=== PATIENT | male | born 1950 | race Caucasian/White ===

== ENCOUNTER → 2017-03-17 | Outpatient (CLI) | payer MEDICAID, MEDICARE ==
[~2017-03-17] MED LIST: CATHETER FLUSH 10 ML SYR IV PRN; CIPR500T78 PO; METO25TA2 PO; REGADENOSON 0.4 MG/5 ML SYR (LEXISCAN) IV ONE
[2017-03-17 13:41] VITALS: BP 181/93
[2017-03-17 13:44] VITALS: BP 169/88
[2017-03-17 13:46] VITALS: BP 179/90
== END ==
LOC: CARD 11:54
PROVIDERS: ATTEND Pediatrics
DX: R07.9 Chest pain, unspecified (principal)
CPT/HCPCS: 78452; 93017

== ENCOUNTER → 2018-04-22 | Outpatient (CLI) | payer MEDICARE, MEDICAID ==
[~2018-04-22] MED LIST changes: -CATHETER FLUSH 10 ML SYR IV PRN; -REGADENOSON 0.4 MG/5 ML SYR (LEXISCAN) IV ONE
== END ==
LOC: CARD 14:59
PROVIDERS: ATTEND Internal Medicine Cardiovascular Disease
DX: R07.89 Other chest pain (principal); I10 Essential (primary) hypertension; E78.2 Mixed hyperlipidemia; E11.9 Type 2 diabetes mellitus without complications; I07.1 Rheumatic tricuspid insufficiency; Z83.3 Family history of diabetes mellitus
CPT/HCPCS: 93306

== ENCOUNTER → 2018-04-23 | Outpatient (CLI) | payer MEDICARE, MEDICAID ==
[~2018-04-23] MED LIST changes: +CATHETER FLUSH 10 ML SYR IV PRN; +REGADENOSON 0.4 MG/5 ML SYR (LEXISCAN) IV ONE
[2018-04-23 07:59] LABS: ALANINE AMINOTRANSFERASE 18 U/L (0-55); ALBUMIN 4.6 GM/DL (3.2-4.5); ALKALINE PHOSPHATASE 37 U/L (40-136); BILIRUBIN,TOTAL 0.7 MG/DL (0.1-1.0); BUN/CREATININE RATIO 8; CALCIUM 10.2 MG/DL (8.5-10.1); CARBON DIOXIDE 26 MMOL/L (21-32); CHLORIDE 97 MMOL/L (98-107); CHOLESTEROL 103 MG/DL (< 200); CREATININE SERUM 0.97 MG/DL (0.60-1.30); GFR ESTIMATED > 60; GLUCOSE 119 MG/DL (70-105); HDL CHOLESTEROL 48 MG/DL (40-60); POTASSIUM 4.2 MMOL/L (3.6-5.0); SODIUM 133 MMOL/L (135-145); TOTAL PROTEIN 7.5 GM/DL (6.4-8.2); TRIGLYCERIDES 104 MG/DL (<150); VLDL CHOLESTEROL 21 MG/DL (5-40)
--- NOTE | 2018-04-23 18:41 | STRESS TEST ---
DATE OF SERVICE: 04/23/2018 LEXISCAN MYOVIEW STRESS TEST REPORT REFERRING PHYSICIAN: Dr. Robe Harris. Baseline heart rate is 73, baseline blood pressure 178/88. Baseline EKG is sinus rhythm with no ischemic changes. In summary, the patient was injected with 8.84 mCi of technetium-99 Myoview and the resting images were obtained. Then, he received 0.4 mg of Lexiscan followed by 27.7 mCi of technetium-99 Myoview. Throughout the test, the patient was asymptomatic. He had mild dyspnea, no EKG changes. The resting and stress images were reviewed and compared in the short axis, horizontal long axis, and vertical long axis views. Review of the images showed diaphragmatic attenuation with fixed defect at the inferoapical segment with no significant ischemia or infarction. SSS is 2, SDS 0. TID value is 1.12. On the gated images, the left ventricle appeared to be in normal size with normal contractility. Calculated ejection fraction is 57%. CONCLUSION: 1. The patient tolerated Lexiscan well. 2. Diaphragmatic attenuation with no significant ischemia or infarction on SPECT images. 3. Normal left ventricular size with normal contractility. Calculated ejection fraction is 57%. Job ID: [id number] DocumentID: [id number] Dictated Date: 04/23/2018 15:54:42 Sports Team Manager Date: 04/23/2018 18:40:47 Dictated By: GALE GÓMEZ MD
== END ==
LOC: CARD 06:45
PROVIDERS: ATTEND Internal Medicine Cardiovascular Disease
DX: R07.89 Other chest pain (principal); E78.2 Mixed hyperlipidemia; E11.9 Type 2 diabetes mellitus without complications; Z83.3 Family history of diabetes mellitus; I10 Essential (primary) hypertension
CPT/HCPCS: 36415; 78452; 80053; 80061; 93017

== ENCOUNTER → 2019-01-05 | Outpatient (CLI) | payer MEDICARE, MEDICAID ==
[~2019-01-05] MED LIST changes: -CATHETER FLUSH 10 ML SYR IV PRN; -REGADENOSON 0.4 MG/5 ML SYR (LEXISCAN) IV ONE
--- NOTE | 2019-01-05 11:39 | Diagnostic Imaging Report ---
PROCEDURE: CT chest without contrast. TECHNIQUE: Multiple contiguous axial images were obtained through the chest without the use of intravenous contrast. Auto Exposure Controls were utilized during the CT exam to meet ALARA standards for radiation dose reduction. INDICATION: Swelling on the left side of sternum. COMPARISON: There are no prior studies available for comparison. FINDINGS: The axial images do show asymmetric prominence of the subcutaneous fat along the left lateral aspect of the sternum (image 51-69 of 126). There is no solid mass or cyst evident in this area. It is possible there could be a lipoma in this region although it is difficult to identify any discrete lesion. There does appear to be gynecomastia on the left. Whether this accounts for the left-sided soft tissue prominence is not certain. If further evaluation is desired, then mammography and ultrasound would be recommended. The sternum itself is intact and there is no acute bony abnormality appreciated. The other osseous structures are also unremarkable for a fracture or destructive lesion. There does appear to be at least moderate degenerative disc and bony disease involving the lower thoracic spine. The lungs are clear. There is no evidence for failure, pneumonia or for a pleural effusion. There is no parenchymal lung mass identified either. The heart size is within normal limits. There are coronary artery calcifications evident. The aorta is not abnormally dilated. There is no obvious mediastinal or hilar adenopathy. The thyroid gland where visualized is unremarkable. The sections through the upper abdomen failed to show any sign of an acute abnormality. There is cholelithiasis without evidence for acute cholecystitis. The right adrenal gland was visualized. The right kidney is not clearly imaged and there may be surgical clips in the right renal fossa. The left kidney, where visualized, also seems hypertrophied. Correlation with patient's history would be recommended. If further evaluation of the kidneys is desired, then CT of the abdomen and pelvis would be recommended. IMPRESSION: 1. There is generalized prominence of the subcutaneous fat along the left lateral aspect of the sternum but there is no discrete mass or cyst identified in this area. There does seem to be gynecomastia on the left. Whether this accounts for the asymmetry of the subcutaneous fat is not certain. Recommendations as above. 2. There is no acute cardiopulmonary abnormality noted. 3. The heart is not enlarged. There are coronary artery calcifications evident. 4. There is cholelithiasis without evidence for acute cholecystitis. 5. The left kidney seems enlarged while the right kidney is not visualized and may be surgically absent. Recommendations as above. Dictated by: Dictated on workstation # [id number]
== END ==
LOC: RAD FS 09:18
PROVIDERS: ATTEND Family Medicine
DX: I25.10 Atherosclerotic heart disease of native coronary artery without angina pectoris (principal); K80.20 Calculus of gallbladder without cholecystitis without obstruction; N28.81 Hypertrophy of kidney; M95.4 Acquired deformity of chest and rib; R22.2 Localized swelling, mass and lump, trunk; Z98.890 Other specified postprocedural states
CPT/HCPCS: 71250

== ENCOUNTER → 2019-03-25 | Outpatient (CLI) | payer MEDICARE, MEDICAID ==
--- NOTE | 2019-03-25 16:16 | Diagnostic Imaging Report ---
PROCEDURE: MR imaging of the chest without contrast. TECHNIQUE: Multiplanar, multisequence non-contrast MR imaging of the chest was performed. DATE: March 25, 2019. INDICATION: 68-year-old male, mass/swelling in the region of the left side of the sternum. COMPARISON: CT chest January 05, 2019. FINDINGS: There is bilateral gynecomastia. There are bilateral sternoclavicular degenerative changes. There is no sternoclavicular joint dislocation. There is no sternoclavicular joint effusion. There is no identified concerning bone lesion. There is no soft tissue mass in the region of the sternum. There is a partially imaged area of fat attenuation in the region of the left intra-abdominal wall on coronal T1 sequence image 13 which is incompletely imaged. This could potentially reflect a lipoma or fat-containing hernia. IMPRESSION: 1. No concerning bone lesion or identified soft tissue mass at the level of the sternum. 2. Bilateral sternoclavicular degenerative changes. No sternoclavicular joint effusion. 3. Bilateral gynecomastia. Dictated by: Dictated on workstation # [id number]
== END ==
LOC: RAD 13:03
PROVIDERS: ATTEND Family Medicine
DX: M19.012 Primary osteoarthritis, left shoulder (principal); M19.011 Primary osteoarthritis, right shoulder; N62 Hypertrophy of breast
CPT/HCPCS: 71550

== ENCOUNTER → 2019-11-03 | Outpatient (CLI) | payer MEDICARE, MEDICAID ==
--- NOTE | 2019-11-03 11:00 | Diagnostic Imaging Report ---
PROCEDURE: CT lumbar spine without contrast. TECHNIQUE: Multiple contiguous axial images were obtained through the lumbar spine without the use of intravenous contrast. Sagittal and coronal reformations were then performed. Auto Exposure Controls were utilized during the CT exam to meet ALARA standards for radiation dose reduction. INDICATION: Low back pain. Prior lumbar spine fusion. COMPARISON: None. FINDINGS: There are five lumbar-type vertebral bodies. Normal alignment. Vertebral body heights are preserved. No fractures. There are postoperative findings of bilateral shant and pedicle screw fixation with laminectomies and interbody devices at L3 through S1. Streak artifact from the hardware limits evaluation. Hardware appears intact. No evidence of loosening. There appears to be at least partial osseous bridging about the interbody devices at each of the levels. Osteophytic ridging results in [id number] bilateral neuroforaminal narrowing at L5-S1, mild at L4-L5. No high-grade spinal canal stenosis is evident on soft tissue windows. The visualized pelvis is intact. Advanced atherosclerotic calcifications. IMPRESSION: 1. Bilateral shant and pedicle screw fixation with interbody devices and laminectomies at L3-S1. No evidence of hardware failure. There appears to be at least partial osseous bridging about each of the fused levels. 2. [id number] osseous bilateral neuroforaminal narrowing at L5-S1, mild at L4-L5. No high-grade spinal canal stenosis is evident on soft tissue windows. 3. No acute osseous findings. Dictated by: Dictated on workstation # [id number]
== END ==
LOC: RAD FS 10:14
PROVIDERS: ATTEND Orthopaedic Surgery Orthopaedic Trauma
DX: M43.26 Fusion of spine, lumbar region (principal); M48.061 Spinal stenosis, lumbar region without neurogenic claudication
CPT/HCPCS: 72131

== ENCOUNTER → 2020-08-30 | Outpatient (CLI) | payer MEDICARE, MEDICAID | LOC: LAB FS 13:28 | PROVIDERS: ATTEND Internal Medicine Cardiovascular Disease | DX: Z01.812 Encounter for preprocedural laboratory examination (principal); Z20.822 Contact with and (suspected) exposure to COVID-19 | CPT/HCPCS: 87635 ==

== ENCOUNTER → 2020-08-30 | Outpatient (CLI) | payer MEDICARE, MEDICAID ==
[2020-08-30 14:25] LABS: CARBON DIOXIDE 28 MMOL/L (21-32); CHLORIDE 92 MMOL/L (98-107); POTASSIUM 3.8 MMOL/L (3.6-5.0); SODIUM 132 MMOL/L (135-145)
[2020-08-30 14:26] LABS: ALANINE AMINOTRANSFERASE 15 U/L (0-55); ALBUMIN 4.9 GM/DL (3.2-4.5); ALKALINE PHOSPHATASE 39 U/L (40-136); BILIRUBIN,TOTAL 0.5 MG/DL (0.1-1.0); BUN/CREATININE RATIO 10; CALCIUM 9.7 MG/DL (8.5-10.1); CREATININE SERUM 0.97 MG/DL (0.60-1.30); GFR ESTIMATED > 60; GLUCOSE 111 MG/DL (70-105); TOTAL PROTEIN 7.6 GM/DL (6.4-8.2)
[2020-08-30 22:58] LABS: CHOLESTEROL 92 MG/DL (< 200); HDL CHOLESTEROL 50 MG/DL (40-60); TRIGLYCERIDES 87 MG/DL (<150); VLDL CHOLESTEROL 17 MG/DL (5-40)
== END ==
LOC: LAB FS 13:39
PROVIDERS: ATTEND Physician Assistant
DX: E78.2 Mixed hyperlipidemia (principal)
CPT/HCPCS: 36415; 80053; 80061

== ENCOUNTER 2020-09-01 20:33 | Outpatient (CLI) | payer MEDICARE, MEDICAID | END 2020-09-02 06:18 | disposition home or self-care (01) | LOC: SLEEP 20:33 | PROVIDERS: ATTEND Internal Medicine Cardiovascular Disease | DX: G47.33 Obstructive sleep apnea (adult) (pediatric) (principal) | CPT/HCPCS: 95810 ==

== ENCOUNTER → 2021-03-04 | Outpatient (CLI) | payer MEDICARE, MEDICAID | LOC: CARD 13:00 | PROVIDERS: ATTEND Internal Medicine Cardiovascular Disease | DX: I35.8 Other nonrheumatic aortic valve disorders (principal); I10 Essential (primary) hypertension | CPT/HCPCS: 93306 ==

== ENCOUNTER → 2021-08-15 | Outpatient (CLI) | payer MEDICARE, MEDICAID ==
[~2021-08-15] MED LIST changes: +CATHETER FLUSH 10 ML SYR IV PRN; +HOLD METFORMIN - RECEIVED CONTRAST 20 ML VIAL IV SCH; +IOHEXOL 350 MG/ML 100 ML (OMNIPAQUE 350) VIAL IV ONE; +NS 100 ML (IVPB) BAG IV ONE
[2021-08-15 13:57] LABS: CREATININE SERUM 0.94 MG/DL (0.60-1.30)
--- NOTE | 2021-08-15 16:18 | Diagnostic Imaging Report ---
INDICATION: Renal malignancy, history of carotid stenosis. TECHNIQUE: All CT scans use one or more of the following dose optimizing techniques: Automated exposure control, MA and/or KvP adjustment based on a patient size and exam type, or iterative reconstruction. COMPARISON: I have no relevant comparison. FINDINGS: There is mild non-stenosing eccentric calcified plaque at the aortic arch. The branching pattern of the great vessels is unremarkable. There is mixed soft and hard plaque in the proximal left subclavian resulting in less than 40% stenosis, and less than 30% stenosis of the right subclavian owing to mixed plaque present. The bilateral cervical vertebral arteries are codominant and patent and show no significant stenosis with a few scattered bilateral eccentric calcified plaques. They are patent through their intradural segments, and the basilar artery and visualized proximal [employer] segments are unremarkable. There are PCOMs identified bilaterally. There is mixed soft and hard plaque in the mid to distal left greater than right common carotids without hemodynamically significant stenosis. There is extensive plaque at the bilateral carotid bulbs and bifurcations extending into the proximal ICAs. The severity and density of the calcified plaque do result in some artifactual distortion of the intraluminal flow. The proximal right ICA about 5 mm above its origin is stenosed at least 70%. The proximal left cervical internal carotid largely owing to calcified plaque is stenosed by about 50%. The mid to distal cervical internal carotids are widely patent. There is calcified plaque in the bilateral carotid siphons and cavernous carotid segments resulting in diffuse mild narrowing of about 30-40%. The bilateral A1 segments and the ACOM are patent as are the proximal anterior and middle cerebral arterial segments. IMPRESSION: 1. Predominantly calcified plaque results in right greater than left proximal cervical internal carotid stenoses of at least 70% right and 50% or less left. 2. There are scattered cervical and intracranial vertebral calcified plaques without significant stenosis. 3. Intracranial carotid plaques result in likely less than 50% stenosis. 4. Less than 50% stenoses of bilateral subclavian arteries owing to calcified plaque. Dictated by: Dictated on workstation # [id number]
== END ==
LOC: LAB FS 13:20
PROVIDERS: ATTEND Physician Assistant
DX: I65.23 Occlusion and stenosis of bilateral carotid arteries (principal)
CPT/HCPCS: 36415; 70498; 82565; 84520; Q9967